=== PATIENT | male | born 1990 | race Caucasian/White ===

== ENCOUNTER 2018-08-07 13:43 | Emergency (ER) | payer OTHER ==
--- NOTE | 2018-08-07 14:06 | ERPHSYRPT ---
- History of Present Illness Time Seen by Provider: 08/07/18 14:02 Source: patient Exam Limitations: no limitations Physician History: 28-year-old white male arrives with complaint of pain in his right foot plantar surface and on the right dorsal foot overlying the fifth metatarsal. Symptoms since yesterday. According to the patient he was cutting wood he stepped partially on a piece of wood and twisted his foot. He states that he was able to walk the remainder of the day but he is having increasing pain in his right foot worse with walking. Past medical history is negative. Past surgical history is negative. Social history positive tobacco positive occasional alcohol use denies illicit drug use. Method of Injury: twisted (twisted his right foot) Occurred: yesterday Quality: intermittent, aching Lower Extremities Pain: foot: right Modifying Factors: Improves With: other (walking) Associated Symptoms: other (pain with walking) Allergies/Adverse Reactions: No Known Drug Allergies Allergy (Unverified 08/07/18 13:50) Home Medications: Aripiprazole [Abilify] DIRECTIONS UNKNOWN 08/07/18 [History] - Review of Systems Constitutional: No Fever, No Chills Eyes: No Symptoms Ears, Nose, & Throat: No Symptoms Respiratory: No Cough, No Dyspnea Cardiac: No Chest Pain, No Edema, No Syncope Abdominal/Gastrointestinal: No Abdominal Pain, No Nausea, No Vomiting, No Diarrhea Genitourinary Symptoms: No Dysuria Musculoskeletal: Other (right foot pain) Skin: No Rash Neurological: No Dizziness, No Focal Weakness, No Sensory Changes Psychological: No Symptoms Endocrine: No Symptoms All Other Systems: Reviewed and Negative - Past Medical History Pertinent Past Medical History: No - Past Surgical History Past Surgical History: No - Nursing Vital Signs Nursing Vital Signs: Initial Vital Signs Temperature 98.5 F 08/07/18 13:53 Pulse Rate 78 08/07/18 13:53 Respiratory Rate 14 08/07/18 13:53 Blood Pressure 126/76 08/07/18 13:53 O2 Sat by Pulse Oximetry 98 08/07/18 13:53 Pain Scale Pain Intensity 10 - Physical Exam General Appearance: mild distress, alert Eyes, Ears, Nose, Throat Exam: moist mucous membranes Neck Exam: non-tender, supple Cardiovascular/Respiratory Exam: chest non-tender, normal breath sounds, regular rate/rhythm, no respiratory distress Gastrointestinal/Abdominal Exam: non-tender, guarding Back Exam: normal inspection, No vertebral tenderness Hips Exam: bilateral: non-tender, normal inspection, normal range of motion, no evidence of injury Legs Exam: bilateral leg: non-tender, normal inspection, normal range of motion , no evidence of injury Knees Exam: bilateral knee: non-tender, normal inspection, normal range of motion, no evidence of injury Ankle Exam: bilateral ankle: non-tender, normal inspection, normal range of motion, no evidence of injury Foot Exam: right foot: other (right slope tender with walking and palpation plantar surface and dorsal surface overlying fifth metatarsal.), left foot: non- tender, normal inspection, normal range of motion, no evidence of injury DTR - Lower Extremities Exam: ankle (R): 2+, ankle (L): 2+ Neuro/Tendon Exam: normal sensation, normal motor functions Mental Status Exam: alert, oriented x 3, cooperative Skin Exam: normal color, warm, dry SpO2 Interpretation: normal (98%) - Radiology Exams Right Foot X-ray Interpretation: Discussed w/ radiologist (X-ray right foot: Impression 1. No acute fracture or dislocation of the right foot) Ordered Tests: Active Orders 24 hr Category Date Time Status FOOT (MINIMUM 3 VIEWS) Stat Exams 08/07/18 14:01 Completed - Progress Progress: improved Progress Note: 08/07/18 15:27 Patient did not want pain medication in the emergency room. Will go ahead and have the nurses place postop shoe place patient on crutches weightbearing as tolerated ice and elevate right foot 24-48 hours. Naprosyn twice a day with food #20. Small amount of [place] as needed for pain. Patient to follow-up with family doctor if symptoms no better in 48 hours or persist longer than one week. - Departure Time of Disposition: 15:28 Departure Disposition: Home Clinical Impression: Right foot pain Right foot sprain Qualifiers: Encounter type: initial encounter Qualified Code(s): S93.601A - Unspecified sprain of right foot, initial encounter Condition: Fair Critical Care Time: No Referrals: JOCELYN VIRGEN [Primary Care Provider] - Additional Instructions: Return home. Ice and elevate right foot 24-48 hours. Crutches weightbearing as tolerated. [place] as prescribed. Naprosyn as prescribed. Follow-up with your family symptoms are worse, no better in 48 hours, or persist longer than one week. Return for acute distress or for severe symptoms. Prescriptions: Hydrocodone/APAP 5-325 Tab^^^ [[place] 5-325 Tablet^^^] 1 tab PO Q6HPRN PRN #10 tablet MDD 6 PRN Reason: Pain Naproxen 500 mg [Naprosyn 500 MG] 500 mg PO BIDPRN PRN #20 tablet PRN Reason: Pain
--- NOTE | 2018-08-07 14:49 | XRAY ---
Exam: 3 views of the right foot from 08/07/2018. Comparison: None. Indication: Piece of wood fell on top of lateral aspect of right foot, twisted right foot yesterday, complains of right foot pain. Findings: AP, oblique, and lateral radiographs of the right foot were obtained. I see no acute fracture or dislocation. The tarsals and metatarsals align correctly. The base of the right fifth metatarsal appears intact. There is a small old-appearing calcification adjacent to the medial malleolus tip. The joint spaces appear unremarkable. There is some prominence of the talar beak along the dorsal surface of the talus on the lateral radiograph. However, I do not see a definite fracture at this site. Several small calcifications are seen posterior to the talus in the region of the os trigonum. This may represent a multipartite os trigonum. However, synovial osteochondromatosis is not excluded. Minimal spur formation at the distal anterior margin of the right tibia is seen. No radiopaque soft tissue foreign body is seen. Impression: 1. I see no acute fracture or dislocation of the right foot. 2. Other incidental findings, as discussed above.
[2018-08-07 15:06] VITALS: O2SAT 99
[2018-08-07 15:36] VITALS: BP 137/65; PULSE 87
== END 2018-08-07 15:48 | disposition home or self-care (01) ==
LOC: ED 13:43
DX: M79.671 Pain in right foot (principal); S93.601A Unspecified sprain of right foot, initial encounter; X50.1XXA Overexertion from prolonged static or awkward postures, initial encounter; Y93.89 Activity, other specified; Y92.89 Other specified places as the place of occurrence of the external cause
CPT/HCPCS: 73630; 99283

== ENCOUNTER 2018-08-14 10:46 | Emergency (ER) | payer OTHER ==
--- NOTE | 2018-08-14 10:50 | ERPHSYRPT ---
- History of Present Illness Time Seen by Provider: 08/14/18 10:49 Source: patient Exam Limitations: no limitations Physician History: 28 y/o white male presents with right upper dental infection and dental pain. mild until this morning. pain worse. Timing/Duration: intermittent Severity: mild Prearrival Treatment: no prearrival treatment Modifying Factors: Improves With: activity Associated Symptoms: tooth pain Allergies/Adverse Reactions: No Known Drug Allergies Allergy (Unverified 08/07/18 13:50) Home Medications: Aripiprazole [Abilify] DIRECTIONS UNKNOWN 08/07/18 [History] Hx Tetanus, Diphtheria Vaccination/Date Given: Yes Hx Influenza Vaccination/Date Given: No Hx Pneumococcal Vaccination/Date Given: No - Review of Systems Constitutional: No Symptoms Eyes: No Symptoms Ears, Nose, & Throat: Other (dental) Respiratory: No Symptoms Cardiac: No Symptoms Abdominal/Gastrointestinal: No Symptoms Genitourinary Symptoms: No Symptoms Musculoskeletal: No Symptoms Skin: No Symptoms Neurological: No Symptoms Psychological: No Symptoms Endocrine: No Symptoms Hematologic/Lymphatic: No Symptoms Immunological/Allergic: No Symptoms All Other Systems: Reviewed and Negative - Past Medical History Pertinent Past Medical History: No Neurological History: No Pertinent History ENT History: No Pertinent History Cardiac History: No Pertinent History Respiratory History: No Pertinent History Endocrine Medical History: No Pertinent History Musculoskeletal History: No Pertinent History GI Medical History: No Pertinent History History: No Pertinent History Psycho-Social History: Bipolar Male Reproductive Disorders: No Pertinent History - Past Surgical History Past Surgical History: No - Social History Smoking Status: Current every day smoker Exposure to second hand smoke: Yes Drug Use: marijuana Patient Lives Alone: Yes - Nursing Vital Signs Nursing Vital Signs: Initial Vital Signs Temperature 99 F 08/14/18 10:59 Pulse Rate 93 H 08/14/18 10:59 Respiratory Rate 18 08/14/18 10:59 Blood Pressure 118/79 08/14/18 10:59 O2 Sat by Pulse Oximetry 100 08/14/18 10:59 Pain Scale Pain Intensity 8 - Physical Exam General Appearance: mild distress, alert, anxiety Eye Exam: bilateral eye: normal inspection, PERRL, EOMI Ear Exam: bilateral ear: auricle normal, canal normal, TM normal Nasal Exam: normal inspection Throat Exam: normal, pharynx normal, dental tenderness (right upper molars) Neck Exam: normal inspection, non-tender, supple, full range of motion, trachea midline Cardiovascular/Respiratory Exam: chest non-tender Abdominal Exam: non-tender Neurologic Exam: alert, oriented x 3, cooperative, revenue collector II-XII nml as tested Skin Exam: normal color, warm, dry SpO2 Interpretation: normal O2 Delivery: Room Air - Progress Progress: pain not gone completely, re-examined Counseled pt/family regarding: diagnosis, need for follow-up - Departure Time of Disposition: 11:13 Departure Disposition: Home Clinical Impression: Dental infection Condition: Stable Critical Care Time: No Referrals: JOCELYN VIRGEN [Primary Care Provider] - Additional Instructions: add ibuprofen and tylenol for pain. follow up with dentist for definitive care. Prescriptions: Amoxicillin 500 mg Cap [Amoxil 500 mg] 500 mg PO TID #30 capsule
[2018-08-14 11:04] VITALS: BP 118/79; PULSE 93; O2SAT 100
[2018-08-14] MEDS ORDERED: OXYCODONE-ACETAMINOPHEN 10-325 PO STA (11:05)
[2018-08-14] MEDS ORDERED: AMOXIL 500 MG PO ONE (11:06)
[2018-08-14] MEDS ORDERED: AMOXIL 500 MG ONE (11:13)
[2018-08-14] MEDS ORDERED: OXYCODONE-ACETAMINOPHEN 10-325 ONE (11:13)
== END 2018-08-14 11:26 | disposition home or self-care (01) ==
LOC: ED 10:46
DX: K04.7 Periapical abscess without sinus (principal); K08.89 Other specified disorders of teeth and supporting structures; Z79.899 Other long term (current) drug therapy
CPT/HCPCS: 99283; A9270-GY

== ENCOUNTER 2018-10-06 09:17 | Emergency (ER) | payer OTHER ==
--- NOTE | 2018-10-06 10:03 | XRAY ---
Indication: Right chest/rib pain. Comparison: None PA/lateral chest hyperinflated and clear. Heart and mediastinal structures within normal limits. Bony thorax intact with minimal scoliosis. Impression: Nonacute hyperinflated chest.
--- NOTE | 2018-10-06 10:11 | ERPHSYRPT ---
- History of Present Illness Source: patient Exam Limitations: no limitations Patient Subjective Stated Complaint: was pushing a drill with the right upper side of his chest at work.. states pain in right upper rib area where he was using the drill. Triage Nursing Assessment: alert and in no distress.. julio was using the right upper part of his chest to assist in drilling at work. pain x 2 days. cough prior to the drilling incident. pain with movement and deep breathing. denies fever. Physician History: Pt is a 28 y/o male that presented to the ER secondary to muscle pain on the R chest. 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 Pt states, that slowly he developed the pain in his chest, and today every touch is painful, and it is hard for his to raise his R arm up. Pt denies palpitations, he complains of pain with deep breathing and with cough. No F/C/S. No N/V/D or abdominal pain. Timing/Duration: day(s) Severity: mild Modifying Factors: Improves With: medication, movement Associated Symptoms: shortness of breath, cough, chest pain Allergies/Adverse Reactions: No Known Drug Allergies Allergy (Verified 10/06/18 09:33) Home Medications: Aripiprazole [Abilify] 2 mg PO DAILY 08/07/18 [History] Hx Tetanus, Diphtheria Vaccination/Date Given: Yes Hx Influenza Vaccination/Date Given: No Hx Pneumococcal Vaccination/Date Given: No Immunizations Up to Date: (ubknown) - Review of Systems Constitutional: No Fever, No Chills Eyes: No Symptoms Ears, Nose, & Throat: No Symptoms Respiratory: Cough, Dyspnea Cardiac: Chest Pain (muscle pain on R) Abdominal/Gastrointestinal: No Abdominal Pain, No Nausea, No Vomiting, No Diarrhea Musculoskeletal: No Back Pain, No Neck Pain Neurological: No Dizziness, No Focal Weakness, No Sensory Changes - Past Medical History Pertinent Past Medical History: Yes Neurological History: No Pertinent History ENT History: No Pertinent History Cardiac History: No Pertinent History Respiratory History: No Pertinent History Endocrine Medical History: No Pertinent History Musculoskeletal History: No Pertinent History GI Medical History: No Pertinent History History: No Pertinent History Psycho-Social History: Bipolar Male Reproductive Disorders: No Pertinent History - Past Surgical History Past Surgical History: No - Social History Smoking Status: Current every day smoker Exposure to second hand smoke: Yes Drug Use: marijuana Patient Lives Alone: No - Nursing Vital Signs Nursing Vital Signs: Initial Vital Signs Temperature 97.5 F 10/06/18 09:25 Pulse Rate 69 10/06/18 09:25 Respiratory Rate 18 10/06/18 09:25 Blood Pressure 127/85 10/06/18 09:25 O2 Sat by Pulse Oximetry 100 10/06/18 09:25 Pain Scale Pain Intensity 7 - Physical Exam General Appearance: mild distress (secondary to pain) Eye Exam: PERRL/EOMI, eyes nml inspection Ears, Nose, Throat Exam: normal ENT inspection, TMs normal, pharynx normal, moist mucous membranes Neck Exam: normal inspection, non-tender, supple, full range of motion Respiratory Exam: normal breath sounds, chest tenderness (on palpation on the R chest), lungs clear Cardiovascular Exam: regular rate/rhythm, normal heart sounds, normal peripheral pulses Gastrointestinal/Abdomen Exam: soft, normal bowel sounds, No tenderness, No mass Extremity Exam: other (Decrease active ROM of the R UE. No limitation with passive ROM.) SpO2: 100 - Course Nursing assessment & vital signs reviewed: Yes EKG Interpreted by Me: RATE (64bpm), Sinus Rhythm, NORMAL AXIS, NORMAL INTERVALS - Radiology Exams Chest X-ray Interpretation: Reviewed by me (nonacute hyperinflated chest) Ordered Tests: Active Orders 24 hr Category Date Time Status CHEST 2 VIEWS (PA AND LAT) Stat Exams 10/06/18 09:48 Completed - Progress Progress: unchanged Progress Note: 10/06/18 10:12 Pt had muscle soreness secondary to repetitive motion with the drill against his chest. The pain is non cardiac. Able to reproduce, and increase in pain, when pt is trying to lift his arm on R up to his head. CXR did not show any injury or infiltrate. He should use anti inflammatory meds, like Ibuprofen OTC for pain, and keep ROM daily. Icew compress can help as well. Discussed with : Waylon Virgen Will see patient in: office Counseled pt/family regarding: need for follow-up - Departure Departure Disposition: Home Clinical Impression: Chest wall muscle strain Condition: Stable Critical Care Time: No Referrals: JOCELNY VIRGEN [Primary Care Provider] - Additional Instructions: F/U with PCP. Use Ibuprofen and ice pack for pain. Keep working on ROM.
[2018-10-06 10:19] VITALS: BP 111/70; PULSE 63; O2SAT 99
== END 2018-10-06 10:19 | disposition home or self-care (01) ==
LOC: ED 09:17
DX: S29.011A Strain of muscle and tendon of front wall of thorax, initial encounter (principal); X50.9XXA Other and unspecified overexertion or strenuous movements or postures, initial encounter; Y92.89 Other specified places as the place of occurrence of the external cause; Y99.0 Civilian activity done for income or pay; R07.9 Chest pain, unspecified
CPT/HCPCS: 71046; 99283

== ENCOUNTER 2019-05-22 10:55 | Emergency (ER) | payer OTHER ==
--- NOTE | 2019-05-22 11:00 | ERPHSYRPT ---
- History of Present Illness Time Seen by Provider: 05/22/19 11:00 Source: patient Exam Limitations: no limitations Physician History: 28 y/o right handed white male who does a lot of work with his hands presents with mild swelling, redness and tenderness to left elbow. pt tried to squeeze out pus but very scant amt present. pt has a scratch/scab present but does not know how it happened. denies fever or chills. pt does do a lot of work that gets his hands and upper ext dirty. Occurred: yesterday Method of Injury: unknown Quality: constant, aching Severity of Pain-Max: mild Severity of Pain-Current: mild Extremities Pain Location: elbow: left Modifying Factors: Improves With: movement Associated Symptoms: none Allergies/Adverse Reactions: No Known Drug Allergies Allergy (Verified 05/22/19 11:20) Hx Tetanus, Diphtheria Vaccination/Date Given: Yes Hx Influenza Vaccination/Date Given: No Hx Pneumococcal Vaccination/Date Given: No - Review of Systems Constitutional: No Symptoms Eyes: No Symptoms Ears, Nose, & Throat: No Symptoms Respiratory: No Symptoms Cardiac: No Symptoms Abdominal/Gastrointestinal: No Symptoms Genitourinary Symptoms: No Symptoms Musculoskeletal: Other (left elbow pain) Skin: Other (mild redness, swelling and tendernesss left elbow with superficial eschar over abrasion) Neurological: No Symptoms Psychological: No Symptoms Endocrine: No Symptoms Hematologic/Lymphatic: No Symptoms Immunological/Allergic: No Symptoms All Other Systems: Reviewed and Negative - Past Medical History Pertinent Past Medical History: Yes Neurological History: No Pertinent History ENT History: No Pertinent History Cardiac History: No Pertinent History Respiratory History: No Pertinent History Endocrine Medical History: No Pertinent History Musculoskeletal History: No Pertinent History GI Medical History: No Pertinent History History: No Pertinent History Psycho-Social History: Bipolar Male Reproductive Disorders: No Pertinent History - Past Surgical History Past Surgical History: No Neuro Surgical History: No Pertinent History Cardiac: No Pertinent History Respiratory: No Pertinent History Gastrointestinal: No Pertinent History Genitourinary: No Pertinent History Musculoskeletal: No Pertinent History Male Surgical History: No Pertinent History - Social History Smoking Status: Current every day smoker Exposure to second hand smoke: Yes Drug Use: marijuana Patient Lives Alone: No - Nursing Vital Signs Nursing Vital Signs: Initial Vital Signs Temperature 98 F 05/22/19 10:58 Pulse Rate 83 05/22/19 10:58 Respiratory Rate 20 05/22/19 10:58 Blood Pressure 125/78 05/22/19 10:58 O2 Sat by Pulse Oximetry 97 05/22/19 10:58 Pain Scale Pain Intensity 8 - Physical Exam General Appearance: no apparent distress, alert, anxiety Eyes, Ears, Nose, Throat Exam: normal ENT inspection, moist mucous membranes Neck Exam: normal inspection, non-tender, supple, full range of motion Cardiovascular/Respiratory Exam: chest non-tender Abdominal Exam: non-tender Back Exam: normal inspection, normal range of motion, No CVA tenderness, No vertebral tenderness Shoulder Exam: normal inspection, non-tender, no evidence of injury, normal ROM Elbow/Forearm Exam: normal ROM, abrasions, pain, soft tissue tenderness, swelling (left elbow) Wrist Exam: normal inspection, non-tender, no evidence of injury, normal ROM Hand Exam: normal inspection, non-tender, no evidence of injury, normal ROM Neuro/Tendon Exam: normal sensation, normal motor functions, normal tendon functions Mental Status Exam: alert, oriented x 3, cooperative Skin Exam: abrasion, other (mild cellulitis) SpO2 Interpretation: normal O2 Delivery: Room Air - Course Nursing assessment & vital signs reviewed: Yes Ordered Tests: Medication Summary Discontinued Medications Generic Name Dose Route Start Last Admin Trade Name Freq PRN Reason Stop Dose Admin Ceftriaxone Sodium 1,000 mg 05/22/19 11:21 Rocephin 1000 Mg Inj IM 05/22/19 11:22 STAT ONE Methylprednisolone Sodium Succinate 125 mg 05/22/19 11:21 Solu-Medrol 125 Mg IM 05/22/19 11:22 STAT ONE - Progress Progress: unchanged Counseled pt/family regarding: diagnosis, need for follow-up - Departure Departure Disposition: Home Clinical Impression: Cellulitis of left elbow Condition: Stable Critical Care Time: No Referrals: JOCELYN VIRGEN [Primary Care Provider] - Additional Instructions: keep site clean daily and covered. follow up with primary doctor for further management. return to ED for worsening condition. Prescriptions: Hydrocodone/APAP 5/325 [[place] 5/325 mg] 1 each PO Q8H PRN PRN #6 tablet MDD 3 PRN Reason: Pain Smz/Tmp Ds Tablet [Bactrim Ds Tablet] 1 udtab PO BID #14 tablet
[2019-05-22] MEDS ORDERED: solu-MEDROL 125 MG IM ONE (11:21)
[2019-05-22] MEDS ORDERED: Rocephin 1000 MG INJ IM ONE (11:21)
[2019-05-22] MEDS ORDERED: Rocephin 1000 MG INJ ONE (11:29)
[2019-05-22] MEDS ORDERED: solu-MEDROL 125 MG ONE (11:29)
[2019-05-22 12:04] VITALS: BP 125/74; PULSE 66; O2SAT 100
== END 2019-05-22 12:04 | disposition home or self-care (01) ==
LOC: ED 10:55
DX: L03.114 Cellulitis of left upper limb (principal)
CPT/HCPCS: 96372; 99284; J0696; J2930

== ENCOUNTER 2019-12-18 09:05 | Emergency (ER) | payer OTHER ==
[2019-12-18 09:22] VITALS: BP 121/81; PULSE 77; O2SAT 98
[2019-12-18] MEDS ORDERED: BENADRYL 50 MG/ML IM ONE (09:34)
[2019-12-18] MEDS ORDERED: solu-MEDROL 125 MG IM ONE (09:34)
--- NOTE | 2019-12-18 09:34 | ERPHSYRPT ---
- History of Present Illness Time Seen by Provider: 12/18/19 09:25 Source: patient Exam Limitations: no limitations Patient Subjective Stated Complaint: Pt states that for the past couple of days he has had a scattered rash in hair places that has been burning and stinging, denies any itching, it is in his mustache, chest, back, head Triage Nursing Assessment: Pt was brought to the ER by a friend, pt denies any new products or foods, pt reports vomiting last night and stated that it was bright red and he had not been eating or drinking anything red, vitals wnl, patches of skin appears scaley, reports burning pain as a 8/10, doesn't appear t o be in any distress Physician History: This is a 29-year-old white male who works outside often and is constantly working in [employer] and other type of outside brush who presents with approximately 2-day history of burning rash without itching in his back chest distribution of fuentes and his scalp. He is never had anything like this before. There is had no known other episodes like this. There are no other known exposures. He did have an episode of vomiting as well there is blood-tinged in it. He feels nauseated. Timing/Duration: day(s) (2) Quality: burning Severity: mild Location: scalp, face, torso Possible Causes: no cause identified Modifying Factors: Improves With: calamine lotion Associated Symptoms: other (Nausea and vomiting) Allergies/Adverse Reactions: No Known Drug Allergies Allergy (Verified 12/18/19 09:22) Hx Tetanus, Diphtheria Vaccination/Date Given: Yes Hx Influenza Vaccination/Date Given: No Hx Pneumococcal Vaccination/Date Given: No Travel Risk - International Travel Have you traveled outside of the country in past 3 weeks: No - Coronavirus Screening Are you exhibiting any of the following symptoms?: No Close contact with a COVID-19 positive Pt in past 14-21 Days: No - Review of Systems Constitutional: No Symptoms Eyes: No Symptoms Ears, Nose, & Throat: No Symptoms Respiratory: No Symptoms Cardiac: No Symptoms Abdominal/Gastrointestinal: No Symptoms Genitourinary Symptoms: No Symptoms Musculoskeletal: No Symptoms Skin: Rash Neurological: No Symptoms Psychological: No Symptoms Endocrine: No Symptoms Hematologic/Lymphatic: No Symptoms Immunological/Allergic: No Symptoms All Other Systems: Reviewed and Negative - Past Medical History Pertinent Past Medical History: Yes Neurological History: No Pertinent History ENT History: No Pertinent History Cardiac History: No Pertinent History Respiratory History: No Pertinent History Endocrine Medical History: No Pertinent History Musculoskeletal History: No Pertinent History GI Medical History: No Pertinent History History: No Pertinent History Psycho-Social History: Bipolar Male Reproductive Disorders: No Pertinent History Other Medical History: pt reports history of ICU admission with intubation and dialysis r/t prescription drug overdose in 2017. - Past Surgical History Past Surgical History: No Neuro Surgical History: No Pertinent History Cardiac: No Pertinent History Respiratory: No Pertinent History Gastrointestinal: No Pertinent History Genitourinary: No Pertinent History Musculoskeletal: No Pertinent History Male Surgical History: No Pertinent History - Social History Smoking Status: Current every day smoker How long have you smoked: 20 Exposure to second hand smoke: Yes Drug Use: marijuana Patient Lives Alone: Yes - Nursing Vital Signs Nursing Vital Signs: Initial Vital Signs Temperature 97.9 F 12/18/19 09:11 Pulse Rate 77 12/18/19 09:11 Blood Pressure 121/81 12/18/19 09:11 O2 Sat by Pulse Oximetry 97 12/18/19 09:11 Pain Scale Pain Intensity 8 - Physical Exam General Appearance: mild distress, alert, anxiety Eye Exam: PERRL/EOMI, eyes nml inspection Ears, Nose, Throat Exam: normal ENT inspection, moist mucous membranes Neck Exam: normal inspection, non-tender, supple, full range of motion Respiratory Exam: normal breath sounds, lungs clear, airway intact, No chest tenderness, No respiratory distress, No wheezing, No stridor Cardiovascular Exam: regular rate/rhythm, normal heart sounds, normal peripheral pulses Gastrointestinal/Abdomen Exam: soft, No normal bowel sounds, No tenderness Rectal Exam: not done Back Exam: normal inspection, normal range of motion, No CVA tenderness, No vertebral tenderness Extremity Exam: normal inspection, normal range of motion, pelvis stable Neurologic Exam: alert, oriented x 3, cooperative, event specialist food demonstrator II-XII nml as tested Skin Exam: rash (Patches of skin rash on face, scalp, anterior chest, upper back in the midline and in his scalp. The patches of multiple reddened punctate slightly raised lesions. They are not blisters. They burn. They are not in a specific dermatome. There is no evidence of cellulitis or abscess present) Lymphatic Exam: No adenopathy SpO2 Interpretation: normal SpO2: 98 O2 Delivery: Room Air - Course Nursing assessment & vital signs reviewed: Yes Ordered Tests: Medication Summary Discontinued Medications Generic Name Dose Route Start Last Admin Trade Name Durga PRN Reason Stop Dose Admin Diphenhydramine HCl 50 mg 12/18/19 09:34 12/18/19 09:41 Benadryl 50 Mg/Ml IM 12/18/19 09:35 50 mg STAT ONE Administration Diphenhydramine HCl Confirm 12/18/19 09:39 Benadryl 50 Mg/Ml Administered 12/18/19 09:40 Dose 50 mg .ROUTE .STK-MED ONE Famotidine 40 mg 12/18/19 09:35 12/18/19 09:40 Pepcid 20 Mg PO 12/18/19 09:36 40 mg STAT ONE Administration Famotidine Confirm 12/18/19 09:39 Pepcid 20 Mg Administered 12/18/19 09:40 Dose 40 mg .ROUTE .STK-MED ONE Methylprednisolone Sodium Succinate 125 mg 12/18/19 09:34 12/18/19 09:40 Solu-Medrol 125 Mg IM 12/18/19 09:35 125 mg STAT ONE Administration Methylprednisolone Sodium Succinate Confirm 12/18/19 09:39 Solu-Medrol 125 Mg Administered 12/18/19 09:40 Dose 125 mg .ROUTE .STK-MED ONE - Progress Progress: unchanged Counseled pt/family regarding: diagnosis, need for follow-up - Departure Departure Disposition: Home Clinical Impression: Contact dermatitis Condition: Stable Critical Care Time: No Referrals: JOCELYN VIRGEN [Primary Care Provider] - Additional Instructions: Keep all sites clean with soap and water. Avoid exposure to plants or sun. Take medication as prescribed. Use Benadryl 25 mg 3 times a day for the next 5 days. Fill your prescription and take them as prescribed. Follow-up with your primary care physician for persistent symptoms. Return to the emergency department if your symptoms worsen Prescriptions: Prednisone 10 mg [Deltasone 10 mg] 10 mg PO TID #12 tablet Famotidine 20 mg [Pepcid 20 MG] 20 mg PO DAILY #10 tablet
[2019-12-18] MEDS ORDERED: Pepcid 20 MG PO ONE (09:35)
[2019-12-18] MEDS ORDERED: solu-MEDROL 125 MG ONE (09:39)
[2019-12-18] MEDS ORDERED: BENADRYL 50 MG/ML ONE (09:39)
[2019-12-18] MEDS ORDERED: Pepcid 20 MG ONE (09:39)
== END 2019-12-18 10:12 | disposition home or self-care (01) ==
LOC: ED 09:05
DX: L25.5 Unspecified contact dermatitis due to plants, except food (principal); R20.8 Other disturbances of skin sensation; R11.2 Nausea with vomiting, unspecified; F17.210 Nicotine dependence, cigarettes, uncomplicated; F12.90 Cannabis use, unspecified, uncomplicated
CPT/HCPCS: 96372; 99284; J1200; J2930; A9270-GY

== ENCOUNTER 2020-09-02 11:13 | Emergency (ER) | payer OTHER ==
--- NOTE | 2020-09-02 11:18 | ERPHSYRPT ---
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 Yesterday he was using a drill and hammer. He did not fall or have any traumatic injury. Later in the day and this morning he has had significant pain. He does not believe he broke anything he thinks is more muscular pain. He has no chest pain. He is not short of breath Occurred: yesterday Quality: constant, aching, throbbing Severity of Pain-Max: moderate Severity of Pain-Current: moderate Extremities Pain Location: shoulder: right Modifying Factors: Improves With: movement Associated Symptoms: back pain (Chronic) Allergies/Adverse Reactions: No Known Drug Allergies Allergy (Verified 12/18/19 09:22) Hx Tetanus, Diphtheria Vaccination/Date Given: Yes Hx Influenza Vaccination/Date Given: No Hx Pneumococcal Vaccination/Date Given: No Travel Risk - International Travel Have you traveled outside of the country in past 3 weeks: No - Coronavirus Screening Are you exhibiting any of the following symptoms?: No Close contact with a COVID-19 positive Pt in past 14-21 Days: No - Review of Systems Constitutional: No Symptoms Eyes: No Symptoms Ears, Nose, & Throat: No Symptoms Respiratory: No Symptoms Cardiac: No Symptoms Abdominal/Gastrointestinal: No Symptoms Genitourinary Symptoms: No Symptoms Musculoskeletal: Other (Right shoulder pain) Skin: No Symptoms Neurological: No Symptoms Psychological: No Symptoms Endocrine: No Symptoms Hematologic/Lymphatic: No Symptoms Immunological/Allergic: No Symptoms All Other Systems: Reviewed and Negative - Past Medical History Pertinent Past Medical History: Yes Neurological History: No Pertinent History ENT History: No Pertinent History Cardiac History: No Pertinent History Respiratory History: No Pertinent History Endocrine Medical History: No Pertinent History Musculoskeletal History: No Pertinent History GI Medical History: No Pertinent History History: No Pertinent History Psycho-Social History: Bipolar Male Reproductive Disorders: No Pertinent History Other Medical History: pt reports history of ICU admission with intubation and dialysis r/t prescription drug overdose in 2017. - Past Surgical History Past Surgical History: No Neuro Surgical History: No Pertinent History Cardiac: No Pertinent History Respiratory: No Pertinent History Gastrointestinal: No Pertinent History Genitourinary: No Pertinent History Musculoskeletal: No Pertinent History Male Surgical History: No Pertinent History - Social History Smoking Status: Current every day smoker How long have you smoked: 20 Exposure to second hand smoke: Yes Drug Use: marijuana Patient Lives Alone: Yes - Nursing Vital Signs Nursing Vital Signs: Initial Vital Signs Temperature 97.0 F 09/02/20 11:20 Pulse Rate 65 09/02/20 11:20 Respiratory Rate 18 09/02/20 11:20 Blood Pressure 125/79 09/02/20 11:20 O2 Sat by Pulse Oximetry 99 09/02/20 11:20 Pain Scale Pain Intensity 8 - Course Nursing assessment & vital signs reviewed: Yes - Progress Progress: unchanged Counseled pt/family regarding: diagnosis, need for follow-up - Departure Departure Disposition: Home Clinical Impression: Right shoulder strain Condition: Stable Critical Care Time: No Referrals: JOCELYN VIRGEN [ACTIVE STAFF] - Additional Instructions: Avoid activity such as lifting stretching or straining of right shoulder for 72 hours. Alternate ice pack and heating pad a warm setting but not directly on skin every 4 hours over the next 48 hours. Take your medication as prescribed. Follow-up with your primary care physician for further management. Prescriptions: Carisoprodol 350 mg [Soma 350 mg] 350 mg PO Q8H PRN PRN #10 tablet PRN Reason: Muscle Spasms Prednisone 10 mg [Deltasone 10 mg] 10 mg PO TID #12 tablet
[2020-09-02] MEDS ORDERED: OXYCODONE-ACETAMINOPHEN 10-325 ONE (12:11)
[2020-09-02] MEDS: OXYCODONE-ACETAMINOPHEN 10-325 PO STA (12:12)
[2020-09-02 12:21] VITALS: BP 108/67; PULSE 76; O2SAT 98
== END 2020-09-02 12:20 | disposition home or self-care (01) ==
LOC: ED 11:13
DX: S46.911A Strain of unspecified muscle, fascia and tendon at shoulder and upper arm level, right arm, initial encounter (principal); X50.9XXA Other and unspecified overexertion or strenuous movements or postures, initial encounter; X50.0XXA Overexertion from strenuous movement or load, initial encounter; Y93.89 Activity, other specified; Y92.89 Other specified places as the place of occurrence of the external cause; Y99.0 Civilian activity done for income or pay; M25.511 Pain in right shoulder
CPT/HCPCS: 99283; A9270-GY

== ENCOUNTER 2020-09-03 17:50 | Emergency (ER) | payer OTHER ==
[2020-09-03] MEDS ORDERED: Zofran 4 MG/2 ML VIAL ONE (18:29)
[2020-09-03] MEDS ORDERED: Hydromorphone 1 mg/ml Injection ONE (18:30)
[2020-09-03] MEDS ORDERED: Sodium Chloride 0.9% 1000 ML 1,000 ML ONE (18:30)
[2020-09-03] MEDS ORDERED: TORAdol 30 mg Injection ONE (18:30)
[2020-09-03] MEDS: Zofran 4 MG/2 ML VIAL IV ONE (18:31)
[2020-09-03] MEDS: Sodium Chloride 0.9% 1000 ML 1,000 ML IV STA (18:31)
[2020-09-03] MEDS: TORAdol 30 mg Injection IV ONE (18:32)
[2020-09-03] MEDS: Hydromorphone 1 mg/ml Injection IV ONE (18:33)
--- NOTE | 2020-09-03 18:38 | ERPHSYRPT ---
- History of Present Illness Historian: patient Exam Limitations: no limitations Patient Subjective Stated Complaint: Right sided flank pain Triage Nursing Assessment: Patient ambulated back to ED and transferred self to bed. Patient A+O X3. Patient's skin flushed and diaphorectic. Patient reports waking up with right sided flank pain that started this am and has gotten worse throughout the day 10/10 constant sharp pain. Patient states he did vomit X 1. Patient's abdomen soft and round with BS X 4. Patient denies dysuria, frequency or urgency. Timing/Duration: today Activities at Onset: none Quality: sharpness, stabbing, throbbing Abdominal Pain Onset Location: flank (right) Pain Radiation: RLQ, flank Severity of Pain-Max: severe Severity of Pain-Current: moderate Modifying Factors: Improves With: nothing Associated Symptoms: nausea, testicular pain, vomiting Previous symptoms: no prior history Hx Tetanus, Diphtheria Vaccination/Date Given: Yes Hx Influenza Vaccination/Date Given: No Hx Pneumococcal Vaccination/Date Given: No Immunizations Up to Date: Yes <KEVYN MUÑOZ - Last Filed: 09/03/20 19:02> <RADHA PATIÑO - Last Filed: 09/03/20 20:47> - History of Present Illness Time Seen by Provider: 09/03/20 18:20 Physician History: A 30-year-old white male who was seen yesterday in the ER for work-related shoulder pain he was treated and released he this morning awoke with severe right flank pain radiating into the right lower quadrant and feels like he has been hit in the testicular area. He has had nausea and vomiting as well. He has no history of renal stones in the is unaware of any family history of renal stones. He denies fever chills or sweats. (KEVYN MUÑOZ) Allergies/Adverse Reactions: No Known Drug Allergies Allergy (Verified 09/03/20 18:00) Travel Risk - International Travel Have you traveled outside of the country in past 3 weeks: No - Coronavirus Screening Are you exhibiting any of the following symptoms?: No Close contact with a COVID-19 positive Pt in past 14-21 Days: No <KEVYN MUÑOZ - Last Filed: 09/03/20 19:02> - Review of Systems Constitutional: No Fever, No Chills Eyes: No Symptoms Ears, Nose, & Throat: No Symptoms Respiratory: No Cough, No Dyspnea Cardiac: No Chest Pain, No Edema, No Syncope Abdominal/Gastrointestinal: Abdominal Pain, Nausea, Vomiting, No Diarrhea Genitourinary Symptoms: Flank Pain, Testicle Pain, No Dysuria Musculoskeletal: Back Pain, No Neck Pain Skin: No Rash Neurological: No Dizziness, No Focal Weakness, No Sensory Changes Psychological: No Symptoms Endocrine: No Symptoms All Other Systems: Reviewed and Negative <WANDAKEVYN - Last Filed: 09/03/20 19:02> - Past Medical History Pertinent Past Medical History: Yes Neurological History: No Pertinent History ENT History: No Pertinent History Cardiac History: No Pertinent History Respiratory History: No Pertinent History Endocrine Medical History: No Pertinent History Musculoskeletal History: No Pertinent History GI Medical History: No Pertinent History History: No Pertinent History Psycho-Social History: Bipolar Male Reproductive Disorders: No Pertinent History Other Medical History: pt reports history of ICU admission with intubation and dialysis r/t prescription drug overdose in 2017. - Past Surgical History Past Surgical History: No Neuro Surgical History: No Pertinent History Cardiac: No Pertinent History Respiratory: No Pertinent History Gastrointestinal: No Pertinent History Genitourinary: No Pertinent History Musculoskeletal: No Pertinent History Male Surgical History: No Pertinent History - Social History Smoking Status: Current every day smoker How long have you smoked: 20 Exposure to second hand smoke: Yes Drug Use: none Patient Lives Alone: Yes <WANDAKEVYN - Last Filed: 09/03/20 19:02> - Physical Exam General Appearance: moderate distress, alert Eye Exam: PERRL/EOMI, eyes nml inspection Ears, Nose, Throat Exam: normal ENT inspection, pharynx normal, moist mucous membranes Neck Exam: normal inspection, non-tender, supple, full range of motion Respiratory Exam: normal breath sounds, lungs clear, No respiratory distress Cardiovascular Exam: regular rate/rhythm, normal heart sounds Gastrointestinal/Abdomen Exam: soft, tenderness, No mass Male Genitalia Exam: normal genitalia Back Exam: normal inspection, normal range of motion, CVA tenderness (right), No vertebral tenderness Extremity Exam: normal inspection, normal range of motion, pelvis stable Neurologic Exam: alert, oriented x 3, cooperative, normal mood/affect, nml cerebellar function, sensation nml, No motor deficits Skin Exam: normal color, warm, dry SpO2: 99 <WANDAKEVYN - Last Filed: 09/03/20 19:02> - Nursing Vital Signs Nursing Vital Signs: Initial Vital Signs Temperature 98.4 F 09/03/20 18:01 Pulse Rate 75 09/03/20 18:01 Respiratory Rate 18 09/03/20 18:01 Blood Pressure 134/88 09/03/20 18:01 O2 Sat by Pulse Oximetry 99 09/03/20 18:01 Pain Scale Pain Intensity 7 - Course Nursing assessment & vital signs reviewed: Yes - CT Exams Abdomen/Pelvis CT Interpretation: Tele-radiologist Report, Other (5 mm stone right UPJ, mild hydronephrosis) <RADHA PATIÑO - Last Filed: 09/03/20 20:47> Ordered Tests: Active Orders 24 hr Category Date Time Status IV Insertion STAT Care 09/03/20 18:21 Active ABDOMEN AND PELVIS W/0 CONTRAS [CT] Stat Exams 09/03/20 18:21 Completed AMYLASE Stat Lab 09/03/20 18:24 Completed CBC W DIFF Stat Lab 09/03/20 18:24 Completed CMP Stat Lab 09/03/20 18:24 Completed CULTURE,URINE Stat Lab 09/03/20 18:24 Received LIPASE Stat Lab 09/03/20 18:24 Completed UA W/RFX UR CULTURE Stat Lab 09/03/20 18:24 Completed Medication Summary Discontinued Medications Generic Name Dose Route Start Last Admin Trade Name Durga PRN Reason Stop Dose Admin Hydromorphone HCl 1 mg 09/03/20 18:21 09/03/20 18:33 Hydromorphone 1 Mg/Ml Injection IV 09/03/20 18:22 1 mg STAT ONE Administration Hydromorphone HCl Confirm 09/03/20 18:30 Hydromorphone 1 Mg/Ml Injection Administered 09/03/20 18:31 Dose 1 mg .ROUTE .STK-MED ONE Sodium Chloride 1,000 mls @ 999 mls/hr 09/03/20 18:21 09/03/20 20:30 Sodium Chloride 0.9% 1000 Ml IV 09/03/20 19:21 Infused .Q1H1M STA Infusion Sodium Chloride Confirm 09/03/20 18:30 Sodium Chloride 0.9% 1000 Ml Administered 09/03/20 18:31 Dose 1,000 mls @ ud .ROUTE .STK-MED ONE Ceftriaxone Sodium/Dextrose 1 g in 50 mls @ 100 mls/hr 09/03/20 19:15 09/03/20 19:50 Rocephin 1 Gm-D5w 50 Ml Bag IV 09/03/20 19:44 Infused STAT STA Infusion Ceftriaxone Sodium/Dextrose Confirm 09/03/20 19:16 Rocephin 1 Gm-D5w 50 Ml Bag Administered 09/03/20 19:17 Dose 1 g in 50 mls @ ud IV .STK-MED ONE Ketorolac Tromethamine 30 mg 09/03/20 18:21 09/03/20 18:32 Toradol 30 Mg Injection IV 09/03/20 18:22 30 mg STAT ONE Administration Ketorolac Tromethamine Confirm 09/03/20 18:30 Toradol 30 Mg Injection Administered 09/03/20 18:31 Dose 30 mg .ROUTE .STK-MED ONE Ondansetron HCl 4 mg 09/03/20 18:21 09/03/20 18:31 Zofran 4 Mg/2 Ml Vial IV 09/03/20 18:22 4 mg STAT ONE Administration Ondansetron HCl Confirm 09/03/20 18:29 Zofran 4 Mg/2 Ml Vial Administered 09/03/20 18:30 Dose 4 mg .ROUTE .STK-MED ONE Oxycodone/Acetaminophen 2 tab 09/03/20 20:02 09/03/20 20:21 Oxycodone-Acetaminophen 10-325 PO 09/03/20 20:03 2 tab SENT HOME W/ PATIENT STA Administration Oxycodone/Acetaminophen Confirm 09/03/20 20:14 Oxycodone-Acetaminophen 10-325 Administered 09/03/20 20:15 Dose 2 tab .ROUTE .STK-MED ONE Lab/Rad Data: Laboratory Result Diagrams 09/03/20 18:24 09/03/20 18:24 Laboratory Results 09/03/20 09/03/20 09/03/20 Range/Units 18:24 18:24 18:24 WBC 10.0 (4.0-10.5) K/mm3 RBC 4.80 (4.1-5.6) M/mm3 Hgb 14.5 (12.5-18.0) gm/dl Hct 44.6 (42-50) % MCV 92.9 (78-100) fl MCH 30.2 (26-32) pg MCHC 32.5 (32-36) g/dl RDW 12.3 (11.5-14.0) % Plt Count 261 (150-450) K/mm3 MPV 9.5 (7.5-11.0) fl Gran % 72.0 H (36.0-66.0) % Eos # (Auto) 0.23 (0-0.5) Absolute Lymphs (auto) 1.47 (1.0-4.6) Absolute Monos (auto) 1.05 (0.0-1.3) Lymphocytes % 14.7 L (24.0-44.0) % Monocytes % 10.5 (0.0-12.0) % Eosinophils % 2.3 (0.00-5.0) % Basophils % 0.5 (0.0-0.4) % Absolute Granulocytes 7.23 H (1.4-6.9) Basophils # 0.05 (0-0.4) Sodium 138 (137-145) mmol/L Potassium 4.6 (3.5-5.1) mmol/L Chloride 101 (98-107) mmol/L Carbon Dioxide 28 (22-30) mmol/L Anion Gap 13.1 (5-15) MEQ/L BUN 16 (9-20) mg/dL Creatinine 0.85 (0.66-1.25) mg/dL Estimated GFR > 60.0 ML/MIN Glucose 77 (74-106) mg/dL Calcium 9.6 (8.4-10.2) mg/dL Total Bilirubin 0.20 (0.2-1.3) mg/dL AST 36 (17-59) U/L ALT 40 (0-50) U/L Alkaline Phosphatase 80 (38-126) U/L Serum Total Protein 7.6 (6.3-8.2) g/dL Albumin 4.3 (3.5-5.0) g/dL Amylase 43 (30-110) U/L Lipase 48 (23-300) U/L Urine Color FABIAN (YELLOW) Urine Appearance CLOUDY (CLEAR) Urine pH 5.0 (5-6) Ur Specific [place] 1.024 (1.005-1.025) Urine Protein 100 (Negative) Urine Ketones NEGATIVE (NEGATIVE) Urine Blood LARGE (0-5) Lalit/ul Urine Nitrite NEGATIVE (NEGATIVE) Urine Bilirubin NEGATIVE (NEGATIVE) Urine Urobilinogen NEGATIVE (0-1) mg/dL Ur Leukocyte Esterase NEGATIVE (NEGATIVE) Urine WBC (Auto) 26-50 (0-5) /HPF Urine RBC (Auto) >101 (0-2) /HPF U Epithel Cells (Auto) NONE (FEW) /HPF Urine Bacteria (Auto) NONE (NEGATIVE) /HPF Amorphous Crystals FEW (NEGATIVE) /HPF Urine Mucus (Auto) SLIGHT (NEGATIVE) /HPF Urine Culture Reflexed YES (NO) Urine Glucose NEGATIVE (NEGATIVE) mg/dL - Progress Discussed with Dr.: Other (Dr Patiño) <KEVYN MUÑOZ - Last Filed: 09/03/20 19:02> - Progress Progress: improved Discussed with Dr.: Other (Dr Patiño, Dr. Lowe urologist) Will see patient in: office Counseled pt/family regarding: lab results, diagnosis, need for follow-up, rad results <RADHA PATIÑO - Last Filed: 09/03/20 20:47> - Progress Progress Note: 09/03/20 18:44 Patient grandmother was discussed with Dr. Patiño at [facility]. And he will assume care. (KEVYN MUÑOZ) Patient is pain-free. 5 mm stone at right UPJ, mild hydro, UA TNTC RBC, small amt. WBC, expected, not necessarily representing infection, but urine culture do ne and given rocephin here. Dr. Lowe said he can F/U on the culture. Spoke to on-call urologist for [facility] in [place], Dr. Lowe, he says he can see patient in office soon. Advised that if patient worsens, he to [facility]. Rx percocet, phenergan, flomax. D/C stable and improved. Sent with CT disc. 09/03/20 20:06 09/03/20 20:42 (RADHA PATIÑO) <KEVYN MUÑOZ - Last Filed: 09/03/20 19:02> - Departure Departure Disposition: Home Critical Care Time: No <RADHA PATIÑO - Last Filed: 09/03/20 20:47> - Departure Clinical Impression: Ureteral calculus, right Condition: Good Referrals: DOCTOR,NO FAMILY [Primary Care Provider] - (Dr. Lowe in [place] [phone].) Instructions: Kidney Stones (DC) Additional Instructions: Call Dr. Lowe for an appointment, to be seen Saturday, . Bring the CT scan disc with you. Drink lots of fluids, pain medicine as needed. If you cannot handle pain, or develop fever, go to ER at [facility] in [place] (per Dr. Lowe). Prescriptions: Hydrocodone Bit/Acetaminophen [Hydrocodon-Acetaminophn 10-325] 1 each PO Q4H PRN PRN #10 tablet PRN Reason: Pain Hydrocodone/Acetaminophen [Hydrocodone-Acetamin 10-325 mg] 1 tablet PO Q4H PRN PRN #10 tablet MDD 4 PRN Reason: Pain Promethazine HCl 25 mg [Phenergan 25 mg] 25 mg PO Q4H PRN PRN #10 tablet PRN Reason: Nausea/Vomiting Tamsulosin HCl [Flomax] 0.4 mg PO DAILY #10 cap.er.24h
[2020-09-03 18:43] LABS: Absolute Neutrophil Ct (ANC) 7.23 (1.4-6.9); BASOPHIL % 0.5 % (0.0-0.4); Basophil (Absolute #) 0.05 (0-0.4); Eosinophil % 2.3 % (0.00-5.0); Eosinophil (Absolute #) 0.23 (0-0.5); Hematocrit 44.6 % (42-50); Hemoglobin 14.5 gm/dl (12.5-18.0); Lymphocyte (Absolute #) 1.47 (1.0-4.6); Lymphocytes % 14.7 % (24.0-44.0); Mean Cell Volume 92.9 fl (78-100); Mean Corpuscular Hemoglobin 30.2 pg (26-32); Mean Corpuscular Hgb Concent. 32.5 g/dl (32-36); Mean Platelet Volume 9.5 fl (7.5-11.0); Monocyte (Absolute #) 1.05 (0.0-1.3); Monocytes % 10.5 % (0.0-12.0); Platelet Count 261 K/mm3 (150-450); Red Cell Distribution Width 12.3 % (11.5-14.0)
[2020-09-03 18:49] LABS: Amourphous Crystal FEW /HPF (NEGATIVE); Appearance CLOUDY (CLEAR); Bilirubin NEGATIVE (NEGATIVE); Blood LARGE Ery/ul (0-5); Glucose NEGATIVE (NEGATIVE); Ketones NEGATIVE (NEGATIVE); Leukocyte Esterase NEGATIVE (NEGATIVE); Mucus SLIGHT /HPF (NEGATIVE); Nitrite NEGATIVE (NEGATIVE); Protein,Urine Dip 100 (Negative); Specific Gravity 1.024 (1.005-1.025); Urobilinogen NEGATIVE mg/dL (0-1); WBC 26-50 /HPF (0-5)
[2020-09-03 18:50] LABS: RBC >101 /HPF (0-2)
[2020-09-03 18:51] LABS: ALBUMIN 4.3 g/dL (3.5-5.0); ALKALINE PHOSPHATASE 80 U/L (38-126); AMYLASE 43 U/L (30-110); ANION GAP 13.1 MEQ/L (5-15); BLOOD UREA NITROGEN 16 mg/dL (9-20); CHLORIDE 101 mmol/L (98-107); Calcium 9.6 mg/dL (8.4-10.2); Carbon Dioxide 28 mmol/L (22-30); Creatinine 1 0.85 mg/dL (0.66-1.25); EST GLOMERULAR FILTRATION RATE > 60.0 ML/MIN; Glucose 77 mg/dL (74-106); LIPASE 48 U/L (23-300); Potassium 4.6 mmol/L (3.5-5.1); SGOT/AST 36 U/L (17-59); SGPT/ALT 40 U/L (0-50); SODIUM 138 mmol/L (137-145); Total Protein 7.6 g/dL (6.3-8.2)
[2020-09-03] MEDS ORDERED: ROCEPHIN 1 Gm-D5w 50 ml Bag** 1 G/50 ML IVPB IV ONE (19:16)
[2020-09-03] MEDS: ROCEPHIN 1 Gm-D5w 50 ml Bag** 1 G/50 ML IVPB IV STA (19:17)
[2020-09-03] MEDS ORDERED: OXYCODONE-ACETAMINOPHEN 10-325 ONE (20:14)
--- NOTE | 2020-09-03 20:18 | XRAY ---
Indication: Abdomen pain. Multiple contiguous axial images obtained through the abdomen and pelvis without contrast. Comparison: None Lung bases demonstrates 1.4 cm medial right lower lobe subpleural noncalcified nodule with minimal pleural thickening. Inferior lingula demonstrates a 7 mm irregular nodularity. Both indeterminant. No infiltrate or effusion. Heart is not enlarged. Stomach is distended with food/fluid. Noncontrasted stomach and bowel loops appear nonobstructed. Normal appendix. Scattered colonic diverticulosis. No free fluid/air. There is a 5 mm right UPJ calculus with mild hydronephrosis consistent with obstructive uropathy. Additional right mid renal punctate calculus. Liver is enlarged measuring 20.6 cm. Also splenomegaly measuring 13 cm. Gallbladder contracted without gallstones. Remaining liver, gallbladder, pancreas, spleen, adrenal glands, kidneys, ureters, bladder, and aorta appear unremarkable for noncontrast exam. Osseous structures intact. Impression: 1. 5 mm right UPJ calculus producing partial obstruction. Additional right renal micro-calculus. 2. Indeterminant lingula and right lower lobe noncalcified nodules. Malignancy not completely excluded. CT chest recommended for more complete evaluation if not already performed elsewhere. 3. Incidental hepatosplenomegaly. Comment: Preliminary interpretation was made by [facility]. No critical discrepancy.
[2020-09-03] MEDS: OXYCODONE-ACETAMINOPHEN 10-325 PO STA (20:21)
[2020-09-03 20:29] VITALS: O2SAT 97
[2020-09-03 20:55] VITALS: BP 113/68; PULSE 58
== END 2020-09-03 20:56 | disposition home or self-care (01) ==
LOC: ED 17:50
DX: N20.1 Calculus of ureter (principal)
CPT/HCPCS: 36000; 36415; 74176; 80053; 81001; 82150; 83690; 85025; 87086; 96360; 96374; 96375; 99284; J0696; J1170; J1885; J2405; A9270-GY

== ENCOUNTER 2022-09-06 11:06 | Emergency (ER) | payer OTHER ==
[2022-09-06 11:15] VITALS: O2SAT 98
[2022-09-06] MEDS ORDERED: TORAdol 30 mg Injection IM ONE (11:28)
[2022-09-06] MEDS ORDERED: TORAdol 30 mg Injection ONE (11:31)
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
--- NOTE | 2022-09-06 11:53 | XRAY ---
Indication: Pain and swelling. Comparison: None 3 view right ankle demonstrates minimal lateral soft tissue swelling and mild talotibial degenerative changes with small posterior heterotopic ossifications. No other bony, articular, or soft tissue abnormalities.
[2022-09-06 12:09] VITALS: BP 148/50; PULSE 80
== END 2022-09-06 12:45 | disposition home or self-care (01) ==
LOC: ED 11:06
DX: M25.571 Pain in right ankle and joints of right foot (principal); Z79.52 Long term (current) use of systemic steroids; Z28.310 Unvaccinated for COVID-19; Z72.0 Tobacco use
CPT/HCPCS: 73610; 96372; 99283; J1885

== ENCOUNTER 2023-01-16 10:25 | Emergency (ER) | payer OTHER ==
[2023-01-16 10:41] VITALS: BP 123/95; PULSE 77; TEMP 98.2; O2SAT 97
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
== END 2023-01-16 11:29 | disposition home or self-care (01) ==
LOC: ED 10:25
DX: S60.211A Contusion of right wrist, initial encounter (principal); S60.221A Contusion of right hand, initial encounter; W22.01XA Walked into wall, initial encounter; Z28.310 Unvaccinated for COVID-19; Z72.0 Tobacco use
CPT/HCPCS: 73110; 73130; 99283; A4570

== ENCOUNTER 2023-06-21 09:28 | Emergency (ER) | payer OTHER ==
[2023-06-21 09:46] VITALS: TEMP 97.9
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
[2023-06-21] MEDS ORDERED: XYLOCAINE 1% HCL 20 ML MDV ONE (10:26)
[2023-06-21 10:32] VITALS: PULSE 70
[2023-06-21 11:06] VITALS: BP 136/108
[2023-06-21 11:08] VITALS: O2SAT 98
[2023-06-21] MEDS ORDERED: BACIGUENT PACKET ONE (11:23)
== END 2023-06-21 11:47 | disposition home or self-care (01) ==
LOC: ED 09:28
DX: S61.210A Laceration without foreign body of right index finger without damage to nail, initial encounter (principal); W45.8XXA Other foreign body or object entering through skin, initial encounter; Z28.310 Unvaccinated for COVID-19; Z72.0 Tobacco use
CPT/HCPCS: 12001; 99282; A9270-GY

== ENCOUNTER 2023-09-12 14:09 | Emergency (ER) | payer OTHER ==
[2023-09-12 14:33] VITALS: RESP 14; TEMP 97.8
[2023-09-12] MEDS ORDERED: TORAdol 30 mg Injection ONE (14:59)
[2023-09-12] MEDS ORDERED: Norflex 60 MG/2 ML ONE (14:59)
[2023-09-12] MEDS: Norflex 60 MG/2 ML IM ONE (15:01)
[2023-09-12] MEDS: TORAdol 30 mg Injection IM ONE (15:02)
[2023-09-12 15:19] VITALS: BP 118/82; PULSE 62; O2SAT 97
--- NOTE | 2023-09-12 15:47 | ERPHSYRPT ---
- History of Present Illness Time Seen by Provider: 09/12/23 14:12 Source: patient Exam Limitations: no limitations Patient Subjective Stated Complaint: pt states that he has neck pain Triage Nursing Assessment: pt ambulated into the er; pt is axo x4; c/o neck pain; pt states 10/10 neck; no deformity present to neck; denies injury; tenderness to neck; skin PDW; no respiratory distress present; vitals wnl Physician History: 33-year-old male with history of chronic neck pain with degenerative changes presented in the ER with almost 1 week history of progressive worsening left- sided neck pain with some radiation to the left shoulder and arm. Pain is aggravated with movements of neck/upper body and has restricted movements of neck in either direction especially on the left side. Patient reports having similar symptoms in the past. He has seen chiropractor with no relief. No weakness or numbness of her upper extremities. Denies any new fall or trauma but he had some injury many years ago. Allergies/Adverse Reactions: No Known Drug Allergies Allergy (Verified 09/12/23 14:19) Home Medications: Aripiprazole 10 mg [Abilify 10 MG] 10 mg PO DAILY 09/12/23 [History] Duloxetine HCl [Cymbalta] 60 mg PO DAILY 09/12/23 [History] Prazosin HCl 1 mg PO DAILY 09/12/23 [History] Hx Tetanus, Diphtheria Vaccination/Date Given: Yes (approx 2-3 year ago) Hx Influenza Vaccination/Date Given: No Hx Pneumococcal Vaccination/Date Given: No Immunizations Up to Date: No Travel Risk - International Travel Have you traveled outside of the country in past 3 weeks: No - Emerging Infectious Disease Are you exhibiting symptoms associated with any current EIDs: No - Review of Systems Constitutional: No Symptoms Eyes: No Symptoms Ears, Nose, & Throat: No Symptoms Respiratory: No Symptoms Cardiac: No Symptoms Abdominal/Gastrointestinal: No Symptoms Musculoskeletal: Neck Pain Skin: No Symptoms Neurological: No Symptoms Psychological: No Symptoms - Past Medical History Pertinent Past Medical History: Yes Neurological History: No Pertinent History ENT History: No Pertinent History Cardiac History: No Pertinent History Respiratory History: No Pertinent History Endocrine Medical History: No Pertinent History Musculoskeletal History: No Pertinent History GI Medical History: No Pertinent History History: No Pertinent History Psycho-Social History: Bipolar Male Reproductive Disorders: No Pertinent History Other Medical History: pt reports history of ICU admission with intubation and dialysis r/t prescription drug overdose in 2017. - Past Surgical History Past Surgical History: No Neuro Surgical History: No Pertinent History Cardiac: No Pertinent History Respiratory: No Pertinent History Gastrointestinal: No Pertinent History Genitourinary: No Pertinent History Musculoskeletal: No Pertinent History Male Surgical History: No Pertinent History - Social History Smoking Status: Current every day smoker How long have you smoked: 20 Exposure to second hand smoke: Yes Drug Use: marijuana Patient Lives Alone: Yes - Nursing Vital Signs Nursing Vital Signs: Initial Vital Signs Temperature 97.8 F 09/12/23 14:22 Pulse Rate 61 09/12/23 14:22 Respiratory Rate 14 09/12/23 14:22 Blood Pressure 123/86 09/12/23 14:22 O2 Sat by Pulse Oximetry 100 09/12/23 14:22 Pain Scale Pain Intensity [Neck] 10 Pain Intensity 10 - Physical Exam General Appearance: no apparent distress, alert Eyes, Ears, Nose, Throat Exam: normal ENT inspection Neck Exam: normal inspection, supple, limited range of motion, tenderness lateral (Left side with restricted range of motion), No tenderness midline Cardiovascular/Respiratory Exam: chest non-tender, normal breath sounds, regular rate/rhythm Shoulder Exam: normal inspection, non-tender, no evidence of injury, normal ROM Elbow/Forearm Exam: normal inspection, non-tender, no evidence of injury, normal ROM Wrist Exam: normal inspection, non-tender, no evidence of injury, normal ROM Hand Exam: normal inspection, non-tender, no evidence of injury, normal ROM Neuro/Tendon Exam: normal sensation, normal motor functions Mental Status Exam: alert, oriented x 3, cooperative Skin Exam: normal color SpO2 Interpretation: normal SpO2: 97 O2 Delivery: Room Air Ordered Tests: Medication Summary Discontinued Medications Generic Name Dose Route Start Last Admin Trade Name Freq PRN Reason Stop Dose Admin Ketorolac Tromethamine 30 mg 09/12/23 14:57 09/12/23 15:02 Ketorolac Tromethamine 30 Mg/Ml Inj IM 09/12/23 14:58 30 mg STAT ONE Administration Ketorolac Tromethamine Confirm 09/12/23 14:59 Ketorolac Tromethamine 30 Mg/Ml Inj Administered 09/12/23 15:00 Dose 30 mg .ROUTE .STK-MED ONE Orphenadrine Citrate 60 mg 09/12/23 14:57 09/12/23 15:01 Orphenadrine Citrate 60 Mg/2 Ml Vial IM 09/12/23 14:58 60 mg STAT ONE Administration Orphenadrine Citrate Confirm 09/12/23 14:59 Orphenadrine Citrate 60 Mg/2 Ml Vial Administered 09/12/23 15:00 Dose 60 mg .ROUTE .STK-MED ONE - Progress Progress: improved, re-examined Progress Note: 09/12/23 15:44 33-year-old is evaluated for left-sided neck pain. Patient has lateral tenderness on the left side but no midline tenderness. Negative neuro exam in the left upper extremity. Does not have torticollis but does have spasm. I have given him Toradol and Norflex, on reevaluation is feeling better, not completely resolved but is very improved. This patient has this chronic symptoms with no new trauma, do not think needs any new imaging. I will continue with muscle relaxants and NSAIDs to go home and outpatient follow-up recommended. Discussed signs symptoms of worsening needing return to ER which she seems understanding. Stable for discharge. Counseled pt/family regarding: lab results, diagnosis Medical Desision Making - Diagnostic Testing Diagnostic test were ordered, analyzed, and reviewed by me: No - Risk of complications The pt has a mod risk of morbidity or mortality based on: Need for prescription drug management - Departure Departure Disposition: Home Clinical Impression: Cervicalgia Condition: Stable Critical Care Time: No Referrals: DOCTOR,NO FAMILY [Primary Care Provider] - Follow up/PCP as directed ITZEL HOWELL DO [ACTIVE STAFF] - Follow up/PCP as directed (call for appointment with PCP) Instructions: Cervical Muscle Strain (DC) Additional Instructions: Take Tylenol along with diclofenac and Flexeril as needed. Follow[facility] for reevaluation. Return to ER for intractable pain or if having numbness tingling weakness of extremities, difficulty movements of neck, fever chills, intractable vomiting etc. Prescriptions: Cyclobenzaprine HCl 10 mg [Flexeril 10 MG] 10 mg PO TID #20 tablet Diclofenac Sodium 50 mg PO TID PRN 7 Days #20 tab PRN Reason: Pain
== END 2023-09-12 16:00 | disposition home or self-care (01) ==
LOC: ED 14:09
DX: M54.2 Cervicalgia (principal); Z79.899 Other long term (current) drug therapy; Z72.0 Tobacco use
CPT/HCPCS: 96372; 99283; J1885; J2360